=== PATIENT | female | born 1960 | race Caucasian/White ===

== ENCOUNTER 2017-12-31 09:57 | Outpatient (CLI) | payer BC ==
--- NOTE | 2018-01-03 10:02 | MMO ---
BILATERAL SCREENING MAMMOGRAM: History: 57-year-old female. Routine screening mammography. Comparison: 01-01-17, 12-21-08, 11-28-07 Technique: CC and MLO views of both breasts are submitted for interpretation. This study is interpre liliana with the assistance of computer aided detection. FINDINGS: Breasts have scattered fibroglandular tissue. Bilaterally, no mass, architectural distortion or suspi cious calcification. Stable asymmetry in the upper inner left breast. IMPRESSION: BIRADS category 2 - benign findings. Recommend annual mammogram. POS: [facility]
== END 2017-12-31 09:58 | disposition home or self-care (01) ==
LOC: SCSMAMMO 09:57
PROVIDERS: ATTEND Nurse Practitioner Family
DX: Z12.31 Encounter for screening mammogram for malignant neoplasm of breast (principal)
CPT/HCPCS: 77067